=== PATIENT | female | born 1995 | race Caucasian/White ===

== ENCOUNTER 2023-07-24 07:56 | Emergency (ER) | payer OTHER ==
[~2023-07-24] VITALS: Ht 157.5 cm; Wt 70.3 kg
[2023-07-24 08:00] VITALS: BP 121/83; PULSE 72; RESP 17; TEMP 98; O2SAT 98
[2023-07-24 08:52] LABS: BASOPHILS % (AUTO) 0.3 % (0.0-2.0); EOSINOPHILS # (AUTO) 0.1 K/uL (0-0.4); EOSINOPHILS % (AUTO) 1.1 % (0.0-4.0); HEMOGLOBIN 14.4 g/dL (12.0-16.0); LYMPHOCYTES # (AUTO) 1.9 K/uL (2.5-16.5); LYMPHOCYTES % (AUTO) 26.8 % (20.5-51.1); MEAN CORPUSCULAR HEMOGLOBIN 29 pg (27-31); MEAN CORPUSCULAR HGB CONC 34 g/dL (33-37); MEAN CORPUSCULAR VOLUME 85.3 fL (80-94); MONOCYTES # (AUTO) 0.4 K/uL (0.8-1.0); MONOCYTES % (AUTO) 6.1 % (1.7-9.3); NEUTROPHILS # (AUTO) 4.6 K/uL (1.8-7.7); NEUTROPHILS % (AUTO) 65.7 % (42.2-75.2); PLATELET COUNT (AUTO) 214 K/uL (140-450); RED BLOOD CELL COUNT(AUTO) 4.92 MIL/uL (4.20-5.40); RED CELL DISTRIBUTION WIDTH 13.4 % (11.6-13.7)
[2023-07-24 09:01] LABS: ANION GAP 10.6 (8-16); CALCIUM 8.7 mg/dL (8.5-10.1); CARBON DIOXIDE 28.8 mmol/L (21-32); CREATININE 0.7 mg/dL (0.6-1.3); POTASSIUM 4.4 mmol/L (3.5-5.1)
[2023-07-24 09:13] LABS: INR 0.99 (0.8-1.2); PROTHROMBIN TIME 10.4 secs (10.8-13.4)
[2023-07-24] MEDS ORDERED: KETOROLAC 15 MG/ML VIAL ONE (09:18)
[2023-07-24] MEDS: KETOROLAC 30 MG/ML VIAL IVP ONE (09:19)
[2023-07-24] MEDS ORDERED: MORPHINE SULFATE 4 MG/ML SYR ONE (11:12)
[2023-07-24] MEDS: MORPHINE SULFATE 4 MG/ML SYR IVP ONE (11:17)
[2023-07-24] MEDS ORDERED: NAPR-54 PO (13:02)
[2023-07-24] MEDS ORDERED: METH-1681 PO (13:02)
[2023-07-24 14:03] VITALS: BP 105/66; PULSE 68; RESP 17; TEMP 98.6; O2SAT 98
== END 2023-07-24 14:03 | disposition home or self-care (01) ==
LOC: MED 07:56
DX: M54.2 Cervicalgia (principal); R51.9 Headache, unspecified; T80.818A Extravasation of other vesicant agent, initial encounter; Z79.899 Other long term (current) drug therapy; Y92.89 Other specified places as the place of occurrence of the external cause
CPT/HCPCS: 36415; 70450; 70496; 70498; 80048; 84703; 85025; 85610; 96374; 96375; 99285; J1885; J2270; Q9967

== ENCOUNTER 2024-01-08 19:09 | Emergency (ER) | payer OTHER ==
[~2024-01-08] VITALS: Ht 167.6 cm; Wt 59.0 kg
[~2024-01-08 19:09] MED LIST: METH-1681 PO; NAPR-337 PO
[2024-01-08 19:23] VITALS: BP 148/73; PULSE 91; RESP 14; TEMP 98.2; O2SAT 99
[2024-01-08] MEDS: ACETAMINOPHEN EXTRA STRENGTH 500 MG TAB PO ONE (20:11)
[2024-01-08] MEDS ORDERED: METH-1681 PO (21:08)
[2024-01-08] MEDS ORDERED: LID5T TP (21:08)
[2024-01-08] MEDS ORDERED: ACET500T99 PO (21:08)
[2024-01-08 21:19] VITALS: BP 148/73; PULSE 91; RESP 14; TEMP 98.2; O2SAT 99
== END 2024-01-08 21:19 | disposition home or self-care (01) ==
LOC: MED 19:09
DX: S39.012A Strain of muscle, fascia and tendon of lower back, initial encounter (principal); Z79.1 Long term (current) use of non-steroidal anti-inflammatories (NSAID); Z79.899 Other long term (current) drug therapy; V49.9XXA Car occupant (driver) (passenger) injured in unspecified traffic accident, initial encounter; Y93.89 Activity, other specified; Y92.89 Other specified places as the place of occurrence of the external cause; Y99.8 Other external cause status
CPT/HCPCS: 72110; 99283